=== PATIENT | female | born 1935 | race Asian ===

== ENCOUNTER 2016-06-21 10:06 | Outpatient (CLI) | payer OTHER ==
--- NOTE | 2016-06-21 10:41 | DIAGNOSTIC IMAGING REPORT ---
PROCEDURE: CT HEAD WITHOUT CONTRAST INDICATION: MEMORY IMPAIRMENT TECHNIQUE: Axial CT images were acquired through the head. Coronal and sagittal reformations were created. COMPARISON: None. FINDINGS: Minimal hypodensity in the periventricular and subcortical white matter. No intracranial hemorrhage or extraaxial fluid collections. Ventricles are normal in size, shape and position. There is no mass, mass effect or midline shift. The nuno-white matter differentiation is normal. The calvarium is intact. The paranasal sinuses and mastoid air cells are normally aerated. The extracranial soft tissues and orbits are normal. IMPRESSION: 1. No CT evidence of acute intracranial process. 2. Age related involutional and white matter changes. All CT scans at this facility use dose modulation, iterative reconstruction, and/or weight-based dosing when appropriate to reduce radiation dose to as low as reasonably achievable.
== END 2016-06-21 23:00 ==
LOC: CT SRH 10:06
DX: R41.3 Other amnesia (principal); R90.82 White matter disease, unspecified